=== PATIENT | female | born 1965 | race Caucasian/White ===

== ENCOUNTER 2024-03-22 14:35 | Outpatient (OUT) | payer BC, SELFPAY ==
--- NOTE | 2024-03-22 14:44 | MM_ITS ---
Patient Name: LOLY SAUCEDA MR#: [id number] : 1965 Exam Date: 03/22/2024 Ordering Doctor: DR ANDREW FONSECA M.D. RADIOLOGY REPORT PROCEDURE: MM TOMOSYNTHESIS SCREENING BI COMPARISON: MG MAMM SCREEN 3D RUBA CAD, 01/28/2022. MG MAMM SCREEN 3D RUBA CAD, 03/20/2023. INDICATIONS: Screening Calculator Name NCI Breast Cancer Risk Assessment Tool 5 Year Breast Cancer Risk n/a% Lifetime Breast Cancer Risk n/a% Personal Breast Cancer Yes, Rt Breast Ca Age 37 Personal Ovarian Cancer No Treatments Lumpectomy, Chemo and Radiation Family Cancers None LOCATION: [facility] BREAST COMPOSITION: There are scattered areas of fibroglandular density. FINDINGS: DIAGNOSTIC CATEGORY 2--BENIGN FINDING. NO CHANGE FROM COMPARISON. Scattered benign-appearing calcifications are present. Scattered benign-appearing lymph nodes are present. RIGHT BREAST: No significant suspicious finding. Asymmetrically small, stable. Heterotopic calcification upper outer quadrant, unchanged LEFT BREAST: No significant suspicious finding. Micro clip marker upper inner quadrant, mid breast. RECOMMENDATIONS: ROUTINE MAMMOGRAM AND CLINICAL EVALUATION IN 12 MONTHS. PLEASE NOTE: A NORMAL MAMMOGRAM DOES NOT EXCLUDE THE POSSIBILITY OF BREAST CANCER. A CLINICALLY SUSPICIOUS PALPABLE LUMP SHOULD BE BIOPSIED. Dictated by: Samuel Roberson MD on 03/23/2024 at 08:29 Approved by: Samuel Roberson MD on 03/23/2024 at 08:45
== END 2024-03-22 14:36 | disposition home or self-care (01) ==
LOC: MAMMO 14:38
PROVIDERS: PCP Family Medicine; Visit Provider Family Medicine
DX: Z12.31 Encounter for screening mammogram for malignant neoplasm of breast (principal); Z85.3 Personal history of malignant neoplasm of breast
CPT/HCPCS: 77063; 77067

== ENCOUNTER 2025-04-03 07:22 | Outpatient (OUT) | payer BC, SELFPAY ==
--- NOTE | 2025-04-03 07:25 | MM_ITS ---
Patient Name: LOLY SAUCEDA MR#: [id number] : 1965 Exam Date: 04/03/2025 Ordering Doctor: DR ANDREW FONSECA M.D. RADIOLOGY REPORT PROCEDURE: MM TOMOSYNTHESIS SCREENING BI COMPARISON: MM TOMOSYNTHESIS SCREENING BI, 03/22/2024. MG MAMM SCREEN 3D RUBA CAD, 03/20/2023. MG MAMM SCREEN 3D RUBA CAD, 01/28/2022. MG MAMM RUBA DIAG W CAD DIG, 01/10/2014. INDICATIONS: Screening Calculator Name NCI Breast Cancer Risk Assessment Tool 5 Year Breast Cancer Risk n/a% Lifetime Breast Cancer Risk n/a% Personal Breast Cancer Yes, Rt Breast Ca Age 37 Personal Ovarian Cancer No Treatments Lumpectomy, Chemo and Radiation Family Cancers None LOCATION: [facility] BREAST COMPOSITION: There are scattered areas of fibroglandular density. FINDINGS: RIGHT BREAST: No significant suspicious finding. LEFT BREAST: No significant suspicious finding. DIAGNOSTIC CATEGORY 1--NEGATIVE. RECOMMENDATIONS: ROUTINE MAMMOGRAM AND CLINICAL EVALUATION IN 12 MONTHS. PLEASE NOTE: A NORMAL MAMMOGRAM DOES NOT EXCLUDE THE POSSIBILITY OF BREAST CANCER. A CLINICALLY SUSPICIOUS PALPABLE LUMP SHOULD BE BIOPSIED. Dictated by: Obi Conde DO on 04/03/2025 at 10:38 Approved by: Obi Conde DO on 04/03/2025 at 11:17
--- OUTSIDE RECORDS SUMMARY | 2025-04-03 07:25 | XMS_ITS | CCD ---
Author Organization [facility] Care Team Providers Care Security Systems Administrator Name Role Phone PHYSICIAN, DEFAULT Unavailable Unavailable PHYSICIAN, DEFAULT Unavailable Unavailable RAYMUNDO, DR MORALES Attending Unavailable RAYMUNDO, DR MORALES Consulting Unavailable RAYMUNDO, DR MORALES Primary Care Unavailable RAYMUNDO, DR MORALES Admitting Unavailable MCKENNA, DR LORNA Wallace Consulting Unavailable Jerry PROCESS TANK TENDER, Marcelle Peña Unavailable Sharonda Grijalva MD Primary Care Provider Jerry PROCESS TANK TENDER, Marcelle Peña Unavailable SHARONDA GRIJALVA Attending Unavailable MARCELLE ST Attending Unavailable MARCELLE ST Attending Unavailable RAYMUNDO, SHARONDA Barlow Attending Unavailable RAYMUNDO, SHARONDA Barlow Referring Unavailable RAYMUNDO, SHARONDA Barlow Referring Unavailable RAYMUNDO, SHARONDA Barlow Referring Unavailable DAVID NORMAN Attending Unavailable RAYMUNDO, SHARONDA Barlow Referring Unavailable APLINGVENTURA Attending Unavailable RAYMUNDO, SHARONDA Barlow Attending Unavailable [place] Attending Unavailable Medications Current Medications Medication Drug Class(es) Dates Sig (Normalized) Sig (Original) [id number] actuat albuterol 0.09 mg/actuat metered dose inhaler (20 sources) beta2-Adrenergic Agonist Start: 01-01-2024 take 2 puff(s) by inhalation every six hours for wheezing albuterol HFA 90 mcg/act inhaler Indications: Acute bronchitis, unspecified organism Inhale 2 puffs every 6 (six) hours if needed for wheezing 17 g 1 01/01/2024 Active Start: 04-20-2023 End: 04-19-2024 take 2 puff(s) by inhalation every four hours for wheezing albuterol HFA 90 mcg/act inhaler Indications: Acute bronchitis, unspecified organism Inhale 2 puffs every 4 (four) hours if needed for wheezing. 18 g 0 04/20/2023 04/19/2024 Active aspirin 81 mg delayed release oral tablet (20 sources) Platelet Aggregation Inhibitor, Nonsteroidal Anti-inflammatory Drug Start: 09-12-2024 End: 09-12-2025 take 1 tablet by mouth once daily aspirin 81 MG EC tablet Indications: Type 2 diabetes mellitus without complication, without long-term current use of insulin Take 1 tablet (81 mg) by mouth Daily 90 tablet 3 09/12/2024 09/12/2025 Active take 1 tablet by mouth once aspi rin 81 MG EC tablet Take 81 mg by mouth 1 (one) time. Active atorvastatin 10 mg oral tablet (20 sources) HMG-CoA Reductase Inhibitor Start: 04-25-2024 End: 11-07-2024 atorvastatin (Lipitor) 10 MG tablet Indications: Pure hypercholesterolemia (CMS/HCC) TAKE 1/2 TABLET EVERY MORNING 45 tablet 11 11/07/2024 Active Start: 11-30-2023 atorvastatin ( Lipitor) 10 MG tablet Indications: Pure hypercholesterolemia (CMS/HCC) TAKE 1/2 TABLET EVERY MORNING 45 tablet 1 11/30/2023 Active Start: 06-03-2023 End: 11-30-2023 take 0.5 tablet by mouth in the morning atorvastatin (Lipitor) 10 MG tablet Indications: Pure hypercholesterolemia (CMS/HCC) Take 0.5 tablets (5 mg) by mouth in the morning. 45 tablet 1 06/03/2023 11/30/2023 Discontinued Blood Glucose Monitoring Suppl (Blood Glucose Monitor System) w/Device kit (1 source) Start: 03-17-2025 End: 03-17-2026 Blood Glucose Monitoring Suppl (Blood Glucose Monitor System) w/Device kit Indications: Type 2 diabetes mellitus without complication, without long-term current use of insulin Use daily or as directed for monitoring of diabetes. 1 kit 03/17/2025 03/17/2026 Active dapagliflozin 10 mg oral tablet (1 source) Sodium-Glucose Cotransporter 2 Inhibitor Start: 09-30-2023 take 1 tablet by mouth in the morning dapagliflozin (Farxiga) 10 MG Indications: Type 2 diabetes mellitus without complication, without long-term current use of insulin (CMS/HCC) Take 1 tablet (10 mg) by mouth in the morning. 90 tablet 1 09/30/2023 Active 60 actuat fluticasone propionate 0.25 mg/actuat / salmeterol 0.05 mg/actuat dry powder inhaler (20 sources) Corticosteroid, beta2-Adrenergic Agonist Start: 10-02-2023 End: 09-27-2024 Fluticasone-Salmet gio (Advair Diskus) 250-50 MCG/ACT aerosol powder Indications: Moderate persistent asthma without complication (CMS/HCC) Inhale 1 Inhalation in the morning and 1 Inhalation before bedtime. 3 each 1 09/27/2024 Active ibuprofen 800 mg oral tablet (20 sources) Nonsteroidal Anti-inflammatory Drug Start: 11-19-2024 IBU 800 MG tablet Indications: Myalgia TAKE 1 TABLET 3 TIMES A DAY NEEDED WITH FOOD OR MILK 270 tablet 11 11/19/2024 Active Start: 04-01-2024 IBU 800 MG tab let Indications: Myalgia TAKE 1 TABLET 3 TIMES A DAY NEEDED WITH FOOD OR MILK 270 tablet 2 04/01/2024 Active Start: 06-30-2023 IBU 800 MG tab let Indications: Myalgia TAKE 1 TABLET WITH FOOD OR MILK NEEDED 3 TIMES A DAY 270 tablet 2 06/30/2023 Active lisinopril 2.5 mg oral tablet (20 sources) Angiotensin Converting Enzyme Inhibitor Start: 03-31-2024 End: 11-07-2024 lisinopril 2.5 MG tablet Indications: Essential hypertension (CMS/HCC) TAKE 1 TABLET ONCE DAILY 90 tablet 11 11/07/2024 Active Start: 07-07-2023 lisinopril 2.5 MG tablet Indications: Essential hypertension (CMS/HCC) TAKE 1 TABLET ONCE DAILY 90 tablet 2 07/07/2023 Active metFORMIN hydrochloride 500 mg oral tablet (20 sources) Biguanide Start: 04-25-2024 metFORMIN (Glu cophage) 500 MG tablet Indications: Type 2 diabetes mellitus without complication, without long-term current use of insulin TAKE 2 TABLETS 2 TIMES DAILY WITH MEALS 360 tablet 3 04/25/2024 Active Start: 06-03-2023 metFORMIN (Glu cophage) 500 MG tablet Indications: Type 2 diabetes mellitus without complication, without long-term current use of insulin (CMS/HCC) TAKE 2 TABLETS 2 TIMES DAILY WITH MEALS 360 tablet 3 06/03/2023 Active metoprolol tartrate 50 mg oral tablet (20 sources) beta-Adrenergic Asif Start: 06-07-2024 End: 03-30-2026 take 1 tablet by mouth in the morning metoprolol tartrate (Lopressor) 50 MG tablet Indications: Essential hypertension (CMS/HCC) Take 1 tablet (50 mg) by mouth in the morning and 1 tablet (50 mg) before bedtime. 180 tablet 11 03/30/2025 03/30/2026 Active Start: 09-28-2023 metoprolol tar trate (Lopressor) 50 MG tablet Indications: Essential hypertension (CMS/HCC) TAKE 1 TABLET 2 TIMES DAILYWITH FOOD 180 tablet 2 09/28/2023 Active montelukast 10 mg oral tablet (20 sources) Leukotriene Receptor Antagonist Start: 11-19-2024 montelukast (Singulair) 10 MG tablet Indications: Seasonal allergic rhinitis due to pollen TAKE 1 TABLET ONCE DAILY 90 tablet 11 11/19/2024 Active Start: 04-01-2024 montelukast (S ingulair) 10 MG tablet Indications: Seasonal allergic rhinitis due to pollen TAKE 1 TABLET ONCE DAILY 90 tablet 1 04/01/2024 Active Start: 09-22-2023 montelukast (S ingulair) 10 MG tablet Indications: Seasonal allergic rhinitis due to pollen TAKE 1 TABLET ONCE DAILY 90 tablet 1 09/22/2023 Active naproxen sodium 220 mg oral tablet (20 sources) Nonsteroidal Anti-inflammatory Drug take 1 tablet by mouth twice daily as needed for pain naproxen sodium (Aleve) 220 MG tablet Take 220 mg by mouth 2 (two) times a day as needed for mild pain. Active Nirmatrelvir&Roverto navir 300/100 (Paxlovid, 300/100,) 20 x 150 MG & 10 x 100MG tablet therapy pack (10 sources) Start: 4 take 3 tablets by mouth in the morning Nirmatrelvir&Roverto navir 300/100 (Paxlovid, 300/100,) 20 x 150 MG & 10 x 100MG tablet therapy pack Indications: COVID-19 Take 3 tablets by mouth in the morning and 3 tablets before bedtime. 30 each 09/27/2024 Active nystatin 100 unt/mg topical powder (20 sources) Polyene Antifungal Start: 5 nystatin (Mycostatin) [id number] UNIT/GM powder Indications: Fungal infection Apply topically 2 (two) times a day 180 g 11 01/10/2025 Active Start: 06-08-2024 End: 12-02-2024 nystatin (Mycostatin) [id number] UNIT/GM powder Indications: Fungal infection Apply topically 2 (two) times a day 180 g 11 12/02/2024 Active Start: 07-07-2023 nystatin (Myco statin) 911805 UNIT/GM powder Indications: Fungal infection APPLY POWDER TOPICALLY TO AFFECTED AREA TWICE DAILY FOR 5 DAYS DIRECTED 180 g 1 07/07/2023 Active omeprazole 40 mg delayed release oral capsule (20 sources) Proton Pump Inhibitor Start: 05-09-2024 omeprazole (PriLOSEC ) [address] capsule Indications: Gastroesophageal reflux disease without esophagitis TAKE 1 CAPSULE DAILY 90 capsule 3 05/09/2024 Active Start: 05-22-2023 omeprazole (Pr iLOSEC) [address] capsule Indications: Gastroesophageal reflux disease without esophagitis TAKE 1 CAPSULE DAILY 90 capsule 3 05/22/2023 Active Tirzepatide (Mounjaro) 5 MG/0.5ML solution pen-injector (20 sources) Start: 04-13-2024 inject 5 mg by subcutaneous injection every week Tirzepatide (Mounjaro) 5 MG/0.5ML solution pen-injector Indications: Type 2 diabetes mellitus without complication, without long-term current use of insulin Inject 5 mg under the skin 1 (one) time per week 12 mL 1 04/13/2024 Active Start: 04-13-2024 inject 5 mg by subcu taneous injection every week Tirzepatide (Mounjaro) 5 MG/0.5ML solution pen-injector Indications: Type 2 diabetes mellitus without complication, without long-term current use of insulin (CMS/HCC) Inject 5 mg under the skin 1 (one) time per week 12 mL 1 04/13/2024 Active Completed/Discontinued Medications Medication Drug Class(es) Dates Sig (Normalized) Sig (Original) cyclobenzaprine hydrochloride 10 mg oral tablet (7 sources) Muscle Relaxant Start: 4 End: 4 take 1 tablet by mouth three times daily as needed for muscle spasms cyclobenzaprine (Flexeril) 10 MG tablet Indications: Lumbar pain Take 1 tablet (10 mg) by mouth 3 (three) times a day as needed for muscle spasms for up to 10 days 30 tablet 07/21/2024 09/05/2024 Discontinued (Med list cleanup) 1 ml methylPREDNISolone acetate 40 mg/ml injection (8 sources) Corticosteroid Start: End: methylPREDNISolone acetate (DEPO-Medrol) injection 40 mg Start: 10-10-2024 End: 10-10-2024 40 mg, Intra-articular, Once PRN Procedure, Starting on Thu10/10/24 at 2117, For 1 dose Start: 09-05-2024 End: 09-05-2024 methylPREDNISolone acetate ( DEPO-Medrol) injection 40 mg Start: 09-05-2024 End: 09-05-2024 40 mg, Intra-articular, Once PRN Procedure, Starting on Thu09/05/24 at 1416, For 1 dose Problems Active Problems Problem Classification Problem Date Documented Date Episodic/Chronic Asthma (20 sources) Mild intermittent asthma; Translations: [Mild intermittent asthma with (acute) exacerbation] Onset: 06-15-2023 06-15-2023 Chronic Cancer of breast (20 sources) Malignant tumor of breast ; Translations: [Malignant neoplasm of unspecified site of unspecified female breast] Onset: 01-02-2014 06-15-2023 Chronic Diabetes mellitus without complication (20 sources) Type 2 diabetes mellitus without complication; Translations: [Type 2 diabetes mellitus without complications] Onset: 08-15-2020 06-15-2023 Chronic Disorders of lipid metabolism (20 sources) Pure hypercholesterolemia; Translations: [Pure hypercholesterolemia, unspecified] Onset: 12-30-2023 11-28-2023 Chronic Esophageal disorders (20 sources) Gastro-esophageal reflux disease with esophagitis; Translations: [Gastro-esophageal reflux disease with esophagitis, without bleeding] Onset: 06-15-2023 06-15-2023 Chronic Essential hypertension (20 sources) Essential hypertension; Translations: [Essential (primary) hypertension] Onset: 08-07-2020 06-15-2023 Chronic Joint disorders and dislocations; trauma-related (20 sources) Derangement of right knee; Translations: [Unspecified internal derangement of right knee] Onset: 06-15-2023 06-15-2023 Chronic Menopausal disorders (20 sources) Postmenopausal bleeding; Translations: [Postmenopausal bleeding] Onset: 06-15-2023 06-15-2023 Chronic Mycoses (1 source) Mycosis; Translations: [Unspecified mycosis] 12-02-2024 Episodic Osteoarthritis (20 sources) Arthritis of first carpometacarpal joint of left hand; Translations: [Unilateral primary osteoarthritis of first carpometacarpal joint, left hand] Onset: 06-15-2023 06-15-2023 Chronic Other connective tissue disease (4 sources) Trochanteric bursitis of right hip; Translations: [Trochanteric bursitis, right hip] 09-05-2024 Episodic Other connective tissue disease (4 sources) Trochanteric bursitis of left hip; Translations: [Trochanteric bursitis, left hip] 10-10-2024 Episodic Other lower respiratory disease (2 sources) Cough; Translations: [Acute cough] 09-27-2024 Episodic Other non-traumatic joint disorders (4 sources) Hip pain; Translations: [Pain in right hip] 08-29-2024 Episodic Other screening for suspected conditions (not mental disorders or infectious disease) (4 sources) Encounter for screening mammogram for malignant neoplasm of breast; Translations: [ENC SCR MAMMO MALIG NEOPLASM BREAST] Onset: 03-20-2023 Episodic Other upper respiratory disease (20 sources) Allergic rhinitis; Translations: [Allergic rhinitis, unspecified] Onset: 03-26-2016 03-27-2023 Chronic Spondylosis; intervertebral disc disorders; other back problems (20 sources) Lumbosacral spondylosis without myelopathy; Translations: [Spondylosis without myelopathy or radiculopathy, lumbosacral region] Onset: 12-22-2019 06-15-2023 Chronic Spondylosis; intervertebral disc disorders; other back problems (3 sources) Low back pain; Translations: [Lumbar pain] 08-25-2024 Episodic Viral infection (2 sources) Disease caused by 2019-nCoV; Translations: [COVID-19] 09-27-2024 Episodic Past or Other Problems Problem Classification Problem Date Documented Da te Episodic/Chronic Abdominal pain (2 sources) Right upper quadrant pain; Translations: [Right upper quadrant pain] 07-04-2024 Episodic Cancer of breast (4 sources) Personal history of malignant neoplasm of breast; Translations: [History of malignant neoplasm of breast] Onset: 03-22-2023 11-19-2024 Episodic Other acquired deformities (20 sources) Acquired spondylolisthesis; Translations: [Spondylolisthesis , site unspecified] Onset: 11-24-2019 06-15-2023 Episodic Other connective tissue disease (20 sources) Deformity of lower limb; Translations: [Contracture of muscle, right lower leg] Onset: 06-15-2023 06-15-2023 Episodic Other connective tissue disease (20 sources) Neurogenic claudication; Translations: [Other symptoms and signs involving the nervous system] Onset: 10-31-2019 06-15-2023 Episodic Results Test Name Value Interpretation Reference Range Facility No Panel Informationon 10-10 Ventura Sood NP 10/10/2024 9:18 PM L Inj/Asp: L greater trochanteric bursa on 10/10/2024 9:17 PM Indications: pain Details: 20 G needle, lateral approach Medications: 40 mg methylPREDNISolone acetate 40 MG/ML UTILIZING ASEPTIC TECHNIQUE PT GIVEN INJECTION IN LEFT HIP BURSA NEUROVASC INTACT S/P INJ, TOLERATED WELL Procedure, treatment alternatives, risks and benefits explained, specific risks discussed. Consent was given by the patient. [facility] - Microbiology an d Antimicrobial susceptibilityon 09-27-2024 SARS-CoV-2 (COVID-19) RNA TOMAS+probe Ql (Unsp spec) Positive [facility] No Panel Informationon 09-27 FLU A Negative [facility] FLU B Negative [facility] Interpretation and review of laboratory results Abnormal [facility] No Panel Informationon 09-05 Ventura Sood NP 09/05/2024 2:18 PM L Inj/Asp: R greater trochanteric bursa on 09/05/2024 2:16 PM Indications: pain Details: 20 G needle, lateral approach Medications: 40 mg methylPREDNISolone acetate 40 MG/ML Consent was given by the patient. Immediately prior to procedure a time out was called to verify the correct patient, procedure, equipment, support service tech and site/side marked as required. Patient was prepped and draped in the usual sterile fashion. [facility] MR LUMBAR SPINE WO CONTRASTo n 07-20-2024 MR LUMBAR SPINE WO CONTRAST TITLE OF EXAM: MR - MRI LUMBAR SPINE WO CONTRAST REASON FOR EXAM: Chronic low back pain, occassional numbness/tingling in right leg, no injury TECHNIQUE: Multisequence, multiplanar MRI of the lumbar spine and COMPARISON: Lumbar spine MRI 11/11/2019 FINDINGS: General findings: There are 5 nonrib-bearing lumbar vertebrae. No fracture; normal vertebral body heights. Minimal retrolisthesis of L3 on L4 and anterolisthesis of L4 on L5, 2 to 3 mm at these levels. Marrow: Ovoid T1 signal hypointense, T2 signal hyperintense lesion within the L4 vertebral body left of midline is unchanged, favoring an intraosseous hemangioma. Mild Modic type II changes of the anterior endplates at T12-L1. Spinal canal: No mass. Normal cord signal and caliber. No thickening/clumping of cauda equina nerve roots. The conus medullaris is at the level of L1-2. Paraspinal muscles and visualized soft tissues: Mild erector spinae atrophy/fatty replacement. Degenerative findings: T12-L1: Mild degenerative disc disease. Small broad-based disc bulge. Minimal spinal canal stenosis. No significant neural foraminal narrowing. L1-2: No significant degenerative changes. No spinal canal or neural foraminal stenosis. L2-3: No significant degenerative changes. No spinal canal or neural foraminal stenosis. L3-4: Mild bilateral facet osteoarthrosis. Mild degenerative disc disease with small broad-based disc bulge. Mild bilateral neural foraminal and minimal spinal canal stenosis. L4-5: Mild degenerative disc disease. Small broad-based disc bulge. Moderate to severe left and moderate right facet osteoarthrosis. Ligamentum flavum hypertrophy. Mild to moderate bilateral neural foraminal stenosis. Mild to moderate spinal canal narrowing. L5-S1: Mild to moderate degenerative disc disease. Broad-based disc bulge. Mild to moderate left and mild right facet osteoarthrosis. Mild to moderate right and mild left neural foraminal stenosis. Minimal spinal canal narrowing. IMPRESSION: 1. No lumbar spine fracture. 2. Minimal L3-4 and L4-5 listhesis, 2 to 3 mm. 3. Degenerative changes as detailed, which contribute to no greater than mild to moderate neural foraminal and spinal canal stenosis at any level. DICTATED ON: 07/20/2024 9:55 AM This report has been electronically signed and approved by the interpreting radiologist. Electronically Signed Raúl Kemp M.D. 2024-07-20 09:59:14 Normal Not Available HbA1c (Bld) [Mass fraction]o n 07-04-2024 Interpretation and review of laboratory results Normal [facility] - Hematology and Cell countson 07-04-2024 HbA1c (Bld) [Mass fraction] 5.7 % [facility] US LIVERon 07-04-2024 US LIVER EAM: Abdominal Ultrasound, Limited. REASON FOR EXAM: Right upper quadrant pain. TECHNIQUE: Transabdominal scanning was performed, including color Doppler and spectral analysis. FINDINGS: Liver: Normal in size and echotexture. Gallbladder: Absent. Bile ducts: Normal in diameter. No dilatation appreciated. Pancreas: Unremarkable. IVC/aorta: Not evaluated. Portal vein: There is appropriate directional flow. Right kidney: No stone, mass or hydronephrosis. No evidence of cysts. Peritoneum: No evidence of ascites. Other: None. Measurements: CBD: 0.32 cm Right kidney: 10.90 cm Liver: 14.09 cm IMPRESSION: Normal limited right upper quadrant abdominal ultrasound. Absent gallbladder. *This report is generated using voice recognition reporting (Wintegra). On occasion [employer]inte[employer] erroneously drops words from the report or replaces the spoken word with similar sounding words. Please call with any questions/concerns regarding this report.* Dictated and transcribed 07/08/2024/ This report has been electronically signed and approved by the interpreting radiologist. Electronically Signed Mehrdad To M.D. 2024-07-08 18:52:09 Normal Not Available XR ABDOMEN 2 VIEWon 07-04-20 24 XR ABDOMEN 2 VIEW XR - ABDOMEN 2 VIEWS Reason for exam: Acute right upper abdominal pain Views: 2 views in 3 images Findings: Status post cholecystectomy. There is no free air beneath the diaphragm. There is a normal bowel gas pattern without obstruction or ileus, and no organomegaly or abnormal calcifications. There is moderate stool throughout the colon. Impression: Colonic obstipation. No acute findings. Dictated on: 07/04/2024 4:58 PM This report has been electronically signed and approved by the interpreting Radiologist. Electronically Signed Mehrdad To M.D. 2024-07-04 16:59:29 Normal Not Available XR Abdomen Single viewon XR - ABDOMEN 2 VIEWS Reason for exam: Acute right upper abdominal pain Views: 2 views in 3 images Findings: Status post cholecystectomy. There is no free air beneath the diaphragm. There is a normal bowel gas pattern without obstruction or ileus, and no organomegaly or abnormal calcifications. There is moderate stool throughout the colon. Impression: Colonic obstipation. No acute findings. Dictated on: 07/04/2024 4:58 PM This report has been electronically signed and approved by the interpreting Radiologist. Electronically Signed Mehrdad To M.D. 2024-07-04 16:59:29 IMAGING Mehrdad To MD - 07/04/2024 XR - ABDOMEN 2 VIEWS Reason for exam: Acute right upper abdominal pain Views: 2 views in 3 images Findings: Status post cholecystectomy. There is no free air beneath the diaphragm. There is a normal bowel gas pattern without obstruction or ileus, and no organomegaly or abnormal calcifications. There is moderate stool throughout the colon. Impression: Colonic obstipation. No acute findings. Dictated on: 07/04/2024 4:58 PM This report has been electronically signed and approved by the interpreting Radiologist. Electronically Signed Mehrdad To M.D. 2024-07-04 16:59:29 [facility] Radiology Study observation (narrative) [facility] XR CHEST 2 VIEWSon 4 XR CHEST 2 VIEWS XR - CHEST 2 VIEWS Reason for exam: Chronic cough Technique: PA and lateral view Findings: The heart size is normal. The pulmonary vascularity is unremarkable. The lungs are fully expanded and clear. No pleural abnormalities are seen. No evidence of mediastinal or hilar enlargement. The osseous structures are intact. No soft tissue abnormalities are seen. IMPRESSION: No acute findings. Dictated on: 07/04/2024 5:18 PM This report has been electronically signed and approved by the interpreting Radiologist. Electronically Signed Mehrdad To M.D. 2024-07-04 17:18:30 Normal Not Available XR Chest 2 Viewson 4 XR - CHEST 2 VIEWS Reason for exam: Chronic cough Technique: PA and lateral view Findings: The heart size is normal. The pulmonary vascularity is unremarkable. The lungs are fully expanded and clear. No pleural abnormalities are seen. No evidence of mediastinal or hilar enlargement. The osseous structures are intact. No soft tissue abnormalities are seen. IMPRESSION: No acute findings. Dictated on: 07/04/2024 5:18 PM This report has been electronically signed and approved by the interpreting Radiologist. Electronically Signed Mehrdad To M.D. 2024-07-04 17:18:30 IMAGING Mehrdad To MD - 07/04/2024 XR - CHEST 2 VIEWS Reason for exam: Chronic cough Technique: PA and lateral view Findings: The heart size is normal. The pulmonary vascularity is unremarkable. The lungs are fully expanded and clear. No pleural abnormalities are seen. No evidence of mediastinal or hilar enlargement. The osseous structures are intact. No soft tissue abnormalities are seen. IMPRESSION: No acute findings. Dictated on: 07/04/2024 5:18 PM This report has been electronically signed and approved by the interpreting Radiologist. Electronically Signed Mehrdad To M.D. 2024-07-04 17:18:30 [facility] Radiology Study observation (narrative) [facility] XR Chest 2 ViewsOrdered By: Mehrdad To on 07-04-2024 [facility] Work Phone: MG MAMM SCREEN 3D RUBA CADon 03-20-2023 MG MAMM SCREEN 3D RUBA CAD Patient: LOLY SAUCEDA Exam Date: 03/20/2023 : 1965 Gender:F Ordering : DR SHARONDA GRIJALVA M.D. Admission #: [id number] Family : Order #: [id number] CLICK HERE TO VIEW EXAM RADIOLOGY REPORT PROCEDURE: MAMMOGRAM SCREENING 3D BILATERAL CAD COMPARISON: MG MAMM SCREEN 3D RUBA CAD, 01/28/2022. INDICATIONS: Screening mammography Calculator Name NCI Breast Cancer Risk Assessment Tool 5 Year Breast Cancer Risk n/a% Lifetime Breast Cancer Risk n/a% Personal Breast Cancer Yes, Rt Breast Ca Age 37 Personal Ovarian Cancer No Treatments Lumpectomy, Chemo and Radiation Family Cancers None LOCATION: [facility] BREAST COMPOSITION: Scattered areas fibroglandular density. FINDINGS: DIAGNOSTIC CATEGORY 2--BENIGN FINDING. NO CHANGE FROM COMPARISON. Scattered benign-appearing lymph nodes are present. RIGHT BREAST: Asymmetrically small, stable. Heterotopic calcifications in the axillary tail are stable likely postsurgical changes. LEFT BREAST: No significant suspicious finding. Unchanged micro clip marker lower inner quadrant, posterior breast RECOMMENDATIONS: ROUTINE MAMMOGRAM AND CLINICAL EVALUATION IN 12 MONTHS. PLEASE NOTE: A NORMAL MAMMOGRAM DOES NOT EXCLUDE THE POSSIBILITY OF BREAST CANCER. A CLINICALLY SUSPICIOUS PALPABLE LUMP SHOULD BE BIOPSIED. Dictated by: Lorna Roberson MD on 03/20/2023 at 10:05 Approved by: Lorna Roberson MD on 03/20/2023 at 10:08 Normal [facility] MRI Knee w/o Righton 023 MRI Knee w/o Right HISTORY: Medial knee pain for 6 months. History of prior surgery. COMPARISON: Radiograph study 10/08/2022 and MRI of the knee 01/03/2022 TECHNIQUE: Multiplanar multisequence MRI of the right knee was performed without contrast. FINDINGS: Quadriceps and patellar tendons are intact. Small joint effusion. The anterior cruciate ligament and posterior cruciate ligament are intact. The medial collateral ligament, lateral collateral ligament, and popliteus are intact. Small size and abnormal signal of the posterior horn/root of the medial meniscus is likely in part postsurgical. There appears to be a flap tear of the posterior horn with thin displaced meniscus flap located inferiorly along the periphery of the posterior medial tibial plateau. There is undersurface irregularity of the posterior horn of the medial meniscus likely representing meniscus fraying. Linear signal within the body of the medial meniscus is unchanged. The lateral meniscus is intact. Interval development of a few tiny partial-thickness cartilage defects of the outer weightbearing medial femoral condyle superimposed on partial-thickness cartilage loss. Tiny subcortical cyst formation of the medial tibial plateau and the location of the previously described subchondral insufficiency fracture. There is a tiny area of cortical offset of the subchondral cortex of the medial tibial plateau with regional bone marrow edema and overlying cartilage abnormality in the form of tiny partial and full-thickness defects. No significant interval change of patellofemoral compartment cartilage abnormalities. Popliteal fossa structures are intact. Thin septated Dong's cyst measures approximately 3.5 cm in craniocaudal length. IMPRESSION: There appears to be a flap tear of the posterior horn of the medial meniscus with thin displaced meniscus flap located inferiorly along the periphery of the medial tibial plateau. Undersurface fraying of the posterior horn of the medial meniscus. Medial and patellofemoral compartment osteoarthritis and additional findings as detailed. Report reported and signed by Shemar Silva on 11/11/2022 1422 Normal [facility] Bookkeeping Teacher Microalbumin (w/o Creat)on 0 01-07-2022 mALB <1.2 Low [facility] Teacher Comment on above: Result Comment: mALB reference range not established. Performed By: #### m ALB #### [facility] [address] [id number] Q - THINPREP(R) TIS AND HPV MRNA E6/E7 RFL HPV 16/18/45on 01-07-2022 CLINICAL INFORMATION: None given Normal Nor [facility] Comment on above: Order Comment: [facility] performed at: [facility], [address] [place] [address], [address] [place] [address], [address] [place] [address], Limnologist: Everett Rankin MD [facility] Collection Date/Time: [facility] Results Received Date/Time: [facility] Reported Date/Time: Performed By: #### 9 1414 #### [facility] Default [address] [place] [address] COMMENT SEE NOTE Normal [facility] Comment on above: Order Comment: [facility] performed at: [facility], [address] [place] [address], [address] [place] [address], [address] [place] [address], Limnologist: Everett Rankin MD [facility] Collection Date/Time: [facility] Results Received Date/Time: [facility] Reported Date/Time: Result Comment: EXPL ANATORY NOTE: The Pap is a screening test for cervical cancer. It is not a diagnostic test and is subject to false negative and false positive results. It is most reliable when a satisfactory sample, regularly obtained, is submitted with relevant clinical findings and history, and when the Pap result is evaluated along with historic and current clinical information. Performed By: #### 9 1414 #### [facility] [address] [place] [address] COMMENT: This Pap test has be en evaluated with computer assisted technology. Normal [facility] Comment on above: Order Comment: [facility] performed at: [facility], [address] [place] [address], [address] [place] [address], [address] [place] [address], Limnologist: Everett Rankin MD [facility] Collection Date/Time: [facility] Results Received Date/Time: [facility] Reported Date/Time: Performed By: #### 9 1414 #### [facility] Default [address] [place] [address] COLON AND RECTAL SURGEON: SEE NOTE Normal [facility] Comment on above: Order Comment: [facility] performed at: [facility], [address] [place] [address], [address] [place] [address], [address] [place] [address], Limnologist: Everett Rankin MD [facility] Collection Date/Time: [facility] Results Received Date/Time: [facility] Reported Date/Time: Result Comment: MRS, CT(ASCP) CT screening location: [place] [address]. Performed By: #### 9 1414 #### [facility] [address] [place] [address] HPV mRNA E6/E7 Not detected Normal Not Detected [facility] Comment on above: Order Comment: [facility] performed at: [facility], [facility], [address] [place] [address], [address] [place] [address], [address] [place] [address], Limnologist: Everett Rankin MD [facility] Collection Date/Time: [facility] Results Received Date/Time: [facility] Reported Date/Time: Result Comment: Meth odology: Program Services Assistant-Mediated Amplification This assay detects E6/E7 viral messenger RNA (mRNA) from 14 high-risk HPV types (16,18,31,33,35,39,45,51,52,56,58,59,66,68). The analytical performance characteristics of this assay have been determined by [facility]. The modifications have not been cleared or approved by the FDA. This assay has been validated pursuant to the CLIA regulations and is used for clinical purposes. For additional information, please refer to http://education.Blue Box/faq/TRM810s9 (This link if provided for information/ educational purposes only.) Performed By: #### 9 1414 #### [facility] [address] [place] [address] INTERPRETATION/RESULT : Negative Normal [facility] [employer] [facility] Comment on above: Order Comment: [facility] performed at: [facility], [facility], [address] [place] [address], [address] [place] [address], [address] [place] [address], Limnologist: Everett Rankin MD [facility] Collection Date/Time: [facility] Results Received Date/Time: [facility] Reported Date/Time: Performed By: #### 9 1414 #### [facility] [address] [place] [address] LMP: None given Normal [facility] Specialist Comment on above: Order Comment: [facility] performed at: [employer], [facility], [address] [place] [address], [address] [place] [address], [address] [place] [address], Limnologist: Everett Rankin MD [facility] Collection Date/Time: [facility] Results Received Date/Time: [facility] Reported Date/Time: Performed By: #### 9 1414 #### [facility] [address] [place] [id number] PREV. BX: None given Normal [facility] Special[facility] Comment on above: Order Comment: [facility] performed at: [facility], [facility], [address] [place] [address], [address] [place] [address], [address] [place] [address], Limnologist: Everett Rankin MD [facility] Collection Date/Time: [facility] Results Received Date/Time: [facility] Reported Date/Time: Performed By: #### 9 1414 #### [facility] Default [address] [place] [address] PREV. PAP: None given Normal [facility] Comment on above: Order Comment: [facility] performed at: [facility], [facility], [address] [place] [address], [address] [place] [address], [address] [place] [address], Limnologist: Everett Rankin MD [facility] Date/Time: [facility] Results Received Date/Time: [facility] Reported Date/Time: Performed By: #### 9 1414 #### [facility] [address] [place] [address] SOURCE: None given Normal [facility] Teacher Comment on above: Order Comment: [facility] performed at: [facility], [facility], [address] [place] [address], [address] [place] [address], Limnologist: Everett Rankin MD [facility] Collection Date/Time: [facility] Results Received Date/Time: [facility] Reported Date/Time: Performed By: #### 9 1414 #### [facility] Default [address] [place] [address] STATEMENT OF ADEQUACY: SEE NOTE Normal [facility] Teacher Comment on above: Order Comment: [facility] performed at: [facility], [facility], [address] [place] [address], [address] [place] [address], Limnologist: Everett Rankin MD [facility] Date/Time: [facility] Results Received Date/Time: [facility] Reported Date/Time: Result Comment: Sati sfactory for evaluation. Endocervical/transformation zone component present. Performed By: #### 9 1414 #### [facility] [address] [place] [address] MRI Knee w/o Righton 022 MRI Knee w/o Right HISTORY: Anterior right-sided knee pain for a couple months with difficulty with flexion. TECHNIQUE: Routine non-contrast MRI of the right knee COMPARISON: Radiographs from 11/20/2021 RESULT: MENISCI: Medial Meniscus: Complete radial tear of the posterior root with a portion of the meniscus protruding toward the medial gutter Lateral Meniscus: Intact LIGAMENTS: ACL, PCL, MCL, LCL Complex: Intact CARTILAGE: Moderate areas of full-thickness chondral loss involving the patella. Small tricompartmental osteophytes. TENDONS: Distal quadriceps intact. Patellar tendon intact. Popliteus tendon intact. BONES AND MARROW: Moderate bone marrow edema within the medial tibial plateau with probable small subchondral fracture line measuring approximately 5 mm transverse by 7 mm AP. No suspicious marrow replacing process. MUSCLES: Muscle bulk and signal intensity are normal. JOINT FLUID AND SYNOVIUM: Trace joint effusion. No synovitis. Small Dong's cyst. Associated ruptured/leaking component tracking inferiorly. Lobular cystic lesion along the posterior aspect of the distal femur medially, may represent continuation of the Dong's cyst versus ganglion cyst. OTHER: Subcutaneous edema especially anteriorly. IMPRESSION: Medial meniscal tear. Probable small subchondral insufficiency fracture of the medial tibial plateau. Moderate patella chondromalacia. Report reported and signed by Ascencion Suarez on 01/03/2022 1535 Normal [facility] Book[facility] Teacher US Venous, Unilat, Lower Ext Righton 12-09-2021 US Venous, Unilat, Lower Ext Right FINDINGS: The deep venous system of the right lower extremity exhibits full compressibility and normal flow augmentation. These specifically include the common femoral, superficial femoral, popliteal and visualization anterior tibialis, posterior tibialis and peroneal veins. No evidence of deep venous thrombosis is present. Greater saphenous vein is patent. No cystic or soft tissue mass in the popliteal fossa. IMPRESSION: No evidence of deep or superficial venous thrombosis. Report reported and signed by Sagar France on 12/09/2021 1254 Normal [facility] Vital Signs Date Time Vital Sign Value Performing Clinician Faci lity 09-27-2024 14:230500 Body height 160 cm Sharonda Grijalva MD Work Phone: [facility] 09-27-2024 14:23-0500 Body mass index (BMI) [Ratio] 28.34 kg/m2 Sharonda Grijalva MD Work Phone: [facility] 09-27-2024 14:23050 Body weight 72.58 kg Sharonda Grijalva MD Work Phone: [facility] 09-27-2024 14:23-0500 Diastolic blood pressure 76 mm[Hg] Sharonda Grijalva MD Work Phone: [facility] 09-27-2024 14:23-0500 Heart rate 79 /min Sharonda Grijalva MD Work Phone: [facility] 09-27-2024 14:23-0500 Respiratory rate 18 /min Sharonda Grijalva MD Work Phone: [facility] 09-27-2024 14:23-0500 SaO2% (BldA) [Mass fraction] 99 % Sharonda Grijalva MD Work Phone: [facility] 09-27-2024 14:23-0500 Systolic blood pressure 122 mm[Hg] Sharonda Grijalva MD Work Phone: [facility] 07-04-2024 13:47-0400 Body height 160 cm Sharonda Grijalva MD Work Phone: [facility] 07-04-2024 13:47-0400 Body mass index (BMI) [Ratio] 30.19 kg/m2 Sharonda Grijalva MD Work Phone: [facility] 07-04-2024 13:47-0400 Body weight 77.29 kg Sharonda Grijalva MD Work Phone: [facility] 07-04-2024 13:47-0400 Diastolic blood pressure 76 mm[Hg] Sharonda Grijalva MD Work Phone: [facility] 07-04-2024 13:47-0400 Heart rate 65 /min Sharonda Grijalva MD Work Phone: [facility] 07-04-2024 13:47-0400 Respiratory rate 18 /min Sharonda Grijalva MD Work Phone: [facility] 07-04-2024 13:47-0400 SaO2% (BldA) [Mass fraction] 98 % Sharonda Grijalva MD Work Phone: [facility] 07-04-2024 13:47-0400 Systolic blood pressure 122 mm[Hg] Sharonda Grijalva MD Work Phone: [facility] Encounters Encounter Date Encounter Type Care Provider Facility Start: 03-30-2025 End: 03-30-2025 Refill Sharonda Grijalva MD Work Phone: [facility] Comment on above: Essential hypertensi on (CMS/HCC) Start: 12-02-2024 End: 12-02-2024 Refill Sharonda Grijalva MD Work Phone: [facility] Comment on above: Fungal infection Start: 11-22-2024 End: 01-28-2025 Telephone encounter Sharonda Grijalva MD Work Phone: [facility] Start: 11-17-2024 End: 11-17-2024 ambulatory SHARONDA GRIJALVA Not Available Start: 11-17-2024 End: 11-17-2024 Bamboo flowsheet Sharonda Grijalva MD Work Phone: [facility] Start: 11-17-2024 End: 11-17-2024 Bamboo flowsheet Sharonda Grijalva MD Work Phone: [facility] Start: 11-07-2024 End: 11-07-2024 Refill Sharonda Grijalva MD Work Phone: [facility] Comment on above: Pure hypercholestero lemia (CMS/HCC); Essential hypertension (CMS/HCC) Start: 10-10-2024 End: 10-10-2024 Bamboo flowsheet Ventura Wilhelm Apling PROCESS TANK TENDER Work Phone: [facility] Start: 10-10-2024 End: 10-10-2024 Bamboo flowsheet Ventura Wilhelm Apling PROCESS TANK TENDER Work Phone: [facility] Start: 10-10-2024 End: 10-10-2024 ambulatory VENTURA Wilhelm APLING Not Available Start: 10-10-2024 End: 10-10-2024 Office outpatient visit 25 minutes eVntura Wilhelm Apling PROCESS TANK TENDER Work Phone: [facility] Comment on above: Left hip pain (Prima ry Dx); Trochanteric bursitis of left hip Start: 09-27-2024 End: 09-27-2024 Office outpatient visit 15 minutes Sharonda Grijalva MD Work Phone: [facility] Comment on above: COVID-19 (Primary Dx ); Acute cough; Moderate persistent asthma without complication (CMS/HCC) Start: 09-27-2024 End: 09-27-2024 ambulatory SHARONDA GRIJALVA Not Available Start: 09-27-2024 End: 09-27-2024 Bamboo flowsheet Sharonda Grijalva MD Work Phone: [facility] Start: 09-27-2024 End: 09-27-2024 Bamboo flowsheet Sharonda Grijalva MD Work Phone: [facility] Start: 09-12-2024 End: 09-12-2024 Refill Sharonda Grijalva MD Work Phone: [facility] Comment on above: Type 2 diabetes sandra itus without complication, without long- term current use of insulin ([facility]) (Primary Dx) Start: 09-07-2024 End: 09-08-2024 Telephone encounter David Norman PT [facility] Comment on above: Cx PT out (She had c alled and left message noting PT is not needed at this time and cx her remaining 2.) Start: 09-05-2024 End: 09-05-2024 Bamboo flowsheet Ventura Sood PROCESS TANK TENDER Work Phone: [facility] Start: 09-05-2024 End: 09-05-2024 Bamboo flowsheet Ventura Sood PROCESS TANK TENDER Work Phone: [facility] Start: 09-05-2024 End: 09-07-2024 Telephone encounter Sharonda Grijalva MD Work Phone: [facility] Start: 09-05-2024 End: 09-05-2024 Office outpatient visit 25 minutes Ventura Sood PROCESS TANK TENDER Work Phone: [facility] Comment on above: Right hip pain (Prim marlene Dx); Trochanteric bursitis of right hip Start: 09-05-2024 End: 09-05-2024 ambulatory VENTURA Wilhelm APLING Not Available Start: 08-30-2024 End: 08-31-2024 Telephone encounter Steve Pacheco FINAL TESTER [facility] Comment on above: Cx PT 08/31 (She call ed noting w/ having 2 jobs the time allowance tomorrow will not give her the availability to make PT. I reminded and she confirmed 09/07.) Start: 08-25-2024 End: 08-25-2024 ambulatory David Norman PT [facility] Comment on above: Lumbar pain (Primary Dx) Start: 08-25-2024 End: 08-25-2024 Bamboo flowsheet David Norman PT [facility] Start: 08-25-2024 End: 08-25-2024 Bamboo flowsheet David Norman PT [facility] Start: 08-16-2024 End: 08-16-2024 Telephone encounter Myles Reyna PT Work Phone: [facility] Comment on above: CX PT eval x3 (She h ad called and lm noting needing to cx PT Eval today.); fu (Called but had to lm notifying w/ this being x3 with rs PT Eval concluding in cancellations, we are not going to be able to rs until she can guarentee she can be present. Requested a call back luis.); Call back (She called back wanting to rs; I noted this will our last attempt due to 3 prior cx, and we scheduled 08/25 w/ Ramon Norman PT.) Start: 08-03-2024 End: 08-09-2024 Telephone encounter David Norman PT [facility] Comment on above: re: PT Eval (She apurva led and lm indicating unable to make PT Eval today; she said she will call back to rs.); FU (Tried to contact to seek rs if able; had to lm requesting a call back to check status. ); Call Back (She contacted and scheduled PT Eval 08/16 w/ Myles Reyna, PT.) Start: 07-20-2024 End: 07-20-2024 ambulatory SHARONDA Barlow RAYMUNDO Not Available Start: 07-08-2024 End: 07-08-2024 ambulatory SHARONDA GRIJALVA Not Available Start: 07-04-2024 End: 07-04-2024 Bamboo flowsadam Grijalva MD Work Phone: [facility] Start: 07-04-2024 End: 07-04-2024 Bamboo flowsadam Grijalva MD Work Phone: [facility] Start: 07-04-2024 End: 07-04-2024 ambulatory SHARONDA GRIJALVA Not Available Start: 07-04-2024 End: 07-04-2024 Office outpatient visit 15 minutes Sharonda Grijalva MD Work Phone: [facility] Comment on above: Right upper quadrant abdominal pain (Primary Dx); Type 2 diabetes mellitus without complication, without long-term current use of insulin (CMS/HCC); Lumbar pain Start: 04-07-2024 End: 04-07-[address] Not Available Start: 12-30-2023 End: 12-30-[address] Not Available Start: 11-28-[address] N P Work Phone: [facility] Comment on above: Pure hypercholestero lemia (CMS/HCC) Start: 03-20-2023 End: 03-21-[address] SHARONDA GRIJALVA Facility: Start: 10-22-2018 End: 10-23-2018 Patient encounter procedure DEFAULT PHYSICIAN Facility:[facility] Procedures Date Procedure Procedure Detail Performing Clinician Start: 10-10-2024 Arthrocentesis aspir &/inj major jt/bursa w/o us Ventura Sood PROCESS TANK TENDER Work Phone: Start: 09-27-2024 STATUS COVID-19/FLU Lori Grijalva MD Work Phone: Start: 09-05-2024 Arthrocentesis aspir &/inj major jt/bursa w/o us Ventura Sood PROCESS TANK TENDER Work Phone: Start: 07-04-2024 Hemoglobin glycosylated a1c Sharonda Grijalva MD Work Phone: Plan of Treatment Date Care Activity Detail Author Start: 01-07-2027 Screening for malignant neoplasm of cervix [facility] Start: 12-31-2026 Screening for malignant neoplasm of colon [facility] Start: 10-21-2026 Glaucoma screening Diabetes: R etinopathy Screening [facility] Start: 09-30-2025 Glaucoma screening Diabetes: R etinopathy Screening [facility] Start: 09-16-2025 Screening for malignant neoplasm of colon [facility] Start: 06-26-2025 Influenza vaccination Influenz a Vaccine (Season Ended) [facility] Start: 04-24-2025 Influenza vaccination Influenza Vacc ine (#1) [facility] Comment on above: Postponed from 06/26 (Patient Refused) Start: 02-15-2025 Hemoglobin A1c measurement Diabetes: Hemoglobin A1C [facility] Start: 11-17-2024 End: 11-17-2024 Patient encounter procedure 11/17/2024 3:00 PM EST Office Visit [facility] [address] [facility] [place] [phone] Sharonda Grijalva MD [address] [place] [address] Arrived [facility] Comment on above: Arrived Start: 10-06-2024 End: 10-06-2024 Patient encounter procedure [facility] Start: 10-05-2024 End: 10-05-2024 Patient encounter procedure 10/05/2024 1:45 PM EST Office Visit [facility] [address] [place] [address] Ventura Sood NP [address] [place] [address] [facility] Start: 10-03-2024 Hemoglobin A1c measurement Diabetes: Hemoglobin A1C [facility] Start: 09-30-2024 Urine screening for protein Diabetes: Urine Protein Screening [facility] Start: 09-27-2024 End: 09-27-2024 Patient encounter procedure 09/27/2024 2:20 PM EST Office Visit [facility] [address] [facility] [place] [phone] Sharonda Grijalva MD [address] [place] [address] Arrived [facility] Comment on above: Arrived Start: 09-26-2024 End: 09-26-2024 Patient encounter procedure 09/26/2024 1:30 PM EST Office Visit [facility] [address] [place] [address] Ventura Sood PROCESS TANK TENDER [address] [place] [address] [facility] Start: 09-14-2024 End: 09-14-2024 ambulatory 09/14/2024 2:00 PM EST Treatment [facility] [address] [place] [address] David Norman, PT [facility] Start: 09-07-2024 End: 09-07-2024 ambulatory 09/07/2024 2:00 PM EST Treatment [facility] [address] [place] [address] David Norman, PT [facility] Start: 09-05-2024 End: 09-05-2024 Patient encounter procedure 09/05/2024 1:30 PM EST Office Visit [facility] [address] [place] [address] Ventura Sood, PROCESS TANK TENDER [address] [place] [address] [facility] Start: 08-31-2024 End: 08-31-2024 ambulatory 08/31/2024 2:00 PM EST Treatment [facility] [address] [place] [address] Steve Pacheco PTA [facility] Start: 08-25-2024 End: 08-25-2024 ambulatory [facility] Comment on above: Lumbar pain Start: 08-16-2024 End: 08-16-2024 ambulatory 08/16/2024 2:30 PM EDT Evaluation [facility] [address] [place] [address] Myles Reyna, PT [address] [place] [address] [facility] Start: 07-08-2024 Hemoglobin A1c measurement Diabetes: Hemoglobin A1C [facility] Start: 07-04-2024 End: 07-04-2025 Collection capillary blood specimen Collection capillary blood specimen Procedures Routine Type 2 diabetes mellitus without complication, without long-term current use of insulin ([facility]/HCC) Expected: 07/04/2024 (Approximate), Expires: 07/04/2025 [facility] Work Phone: Comment on above: Expected: 07/04/2024 (Approximate), Expires: 07/04/2025 Start: 07-04-2024 End: 07-04-2025 MR Lumbar spine WO contrast MR lumbar spine wo contrast Imaging Routine Lumbar pain Expected: 07/04/2024, Expires: 07/04/2025 [facility] Comment on above: Expected: 07/04/2024 , Expires: 07/04/2025 Start: 07-04-2024 End: 07-04-2025 US Abdomen limited US LIVER Imaging Routine Right upper quadrant abdominal pain Expected: 07/04/2024, Expires: 07/04/2025 [facility] Comment on above: Expected: 07/04/2024 , Expires: 07/04/2025 Start: 06-26-2024 Influenza vaccination Influenza Vacc ine (#1) [facility] Start: 12-30-2023 End: 12-30-2023 Patient encounter procedure 12/30/2023 2:00 PM EST Office Visit [facility] [address] [place] [address], [employer] [address] [place] [address] [facility] Start: 09-15-2023 Hemoglobin A1c measurement Diabetes: Hemoglobin A1C [facility] Start: 09-07-2023 Glaucoma screening Diabetes: R etinopathy Screening [facility] Start: 1987 Screening for malignant neoplasm of cervix Pap Smear [facility] Start: 1966 Screening for malignant neoplasm of colon [facility] Immunizations Immunization Date Immunization Notes Care Provider Fa cility 08-10-2023 influenza, injectabl e, quadrivalent, preservative free Marcelle [facility] NP Work Phone: [facility] 08-10-2023 influenza virus vacc ine, unspecified formulation Sharonda Grijalva MD Work Phone: [facility] 08-01-2022 influenza, injectabl e, quadrivalent, preservative free [facility] [employer] Work Phone: [facility] 08-09-2021 influenza, injectabl e, quadrivalent, preservative free [facility] [employer]ER Work Phone: [facility] 08-16-2020 influenza, injectabl e, quadrivalent, preservative free [facility] [employer] Work Phone: [facility] Payers Date Payer Category Payer [facility] [id number] 2015 Unknown 1966 Unknown [id number] [id number]. 2.647 1966 Unknown [id number] [id number]. 2.593 1966 Unknown [id number] [id number]. 2.1259 1966 Unknown [id number] 2.16840.1.274333.3.579. 2.1259 1966 Unknown [id number] 2.16840.1.650890.3.579. 2.1259 1966 Unknown [id number] [id number]. 2.1259 1966 Unknown [id number] 2.16.840.1.363297.3.579. 2.1258 1966 Unknown [id number] 2.16.840.1.110188.3.579. 2.1258 1966 Unknown [id number] 2.16.840.1.360742.3.579. 2.1258 1966 Unknown [id number] 2.16.840.1.970119.3.579. 2.1258 1966 Unknown [id number] 2.16.840.1.678631.3.579. 2.1258 1966 Unknown [id number] 2.16.840.1.750351.3.579. 2.1258 1966 Unknown [id number] 2.16.840.1.967256.3.579. 2.1258 1966 Unknown [id number] [id number]. 2.9 1959 Unknown [id number] Social History Date Type Detail Facility Start: 03-19-2023 Tobacco smoking status [facility] Never sm oked tobacco [facility] Start: 03-19-2023 Tobacco use and exposure Smoke less tobacco non-user [facility] Start: 09-30-2023 End: 11-17-2024 Alcohol intake Lifetime non-drinker (finding) [facility] Start: 04-20-2023 End: 11-17-2024 History of Social function [facility] Start: 04-20-2023 End: 11-17-2024 Alcohol Use Disorder Identification Test - Consumption [AUDIT-C] [facility] How often to you hav e a drink containing alcohol? Never [facility] How many standard dr inks containing alcohol do you have on a typical day? Patient does not drink [facility] Start: 04-30-2023 Alcohol Comment caffeine: 3-4 cups per day [facility] Start: 1965 Sex Assigned At Not on file [facility] Medical Equipment Procedure Code Equipment Code Equipment Origin al Text Equipment Identifier Dates [id number] Start: 09-08-2023 USE AND DISCARD 1 TEST STRIP DAILY. for 90 [id number] USE AND DISCARD 1 LANCET DAILY. [id number] Start: 10-14-2024 Clinical Notes 11-30-2023 to 03-30-2025 Telephone Encounter - Sharonda Grijalva MD - 03/30/2025 12:03 PM EDTTelephone Encounter - Sharonda Grijalva MD - 03/30/2025 12:03 PM EDTTelephone Encounter - Sharonda Grijalva MD - 12/02/2024 4:21 PM EST Note Date & Type Note Facility 03-30-2025 Telephone encounter Note Approvals with refills [facility] 03-30-2025 Miscellaneous Notes Approvals with refills documented in this encounter [facility] 12-02-2024 Telephone encounter Note Approvals with refills [facility] 12-02-2024 Miscellaneous Notes Approvals with refills To: [facility] , ty documented in this encounter [facility] 12-02-2024 Telephone encounter Note To: [facility] , ty [facility] 11-22-2024 Telephone encounter Note Patient called and said she was in last week for her wellness, and discussed her ears, they feel plugged, she states she doesn't feel like you addressed it. I told her she was in for a wellness and may have to schedule another appt. She was not happy that she will have to pay a co-pay. [facility] 11-22-2024 Miscellaneous Notes Patient called and said she was in last week for her wellness, and discussed her ears, they feel plugged, she states she doesn't feel like you addressed it. I told her she was in for a wellness and may have to schedule another appt. She was not happy that she will have to pay a co-pay. documented in this encounter [facility] 11-07-2024 Telephone encounter Note Approvals with refills [facility] 11-07-2024 Miscellaneous Notes Approvals with refills documented in this encounter [facility] 10-10-2024 History of Present illness Narrative Associated Order(s): L Inj/Asp: L greater trochanteric bursa Post-Procedure Diagnose(s): Trochanteric bursitis of left hip Images from the original note were not included. Subjective Patient ID: Josee Sauceda is a 59 y.o. female. RT Hip 5 weeks s/p right greater trochanter depo medrol injection (09/05/24) with 90% improvement Last Kenalog injection (12/09/21) IT band with 100% improvement until about 6 months ago, notes she has been putting off coming in. Denies injury. Denies hardly any pain. Denies pain today. Pain can be lateral, nothing like it was. No pain meds. Denies topicals. Denies N/T, swelling. Denies popping/grinding. Denies giving out. Does not wake at HS. TX: XR [facility] 08/05/2018, corky white 800, 08/05/2018 right hip bursa injection, right hip bursa depo medrol injection 11/06/21, MDP 11/20/21, relafen, depo medrol injection 09/05/24 LT hip LT hip pain for a while but states RT hip was always worse. Last seen 06/29/2019 for the left hip, ordered an MRI of the hip at that time- unsure if she had it done. Wants injection. Last injection (05/18/19) Pain is lateral hip. Denies radiation. Taking motrin daily for other reasons. Denies topicals. Denies N/T, swelling. Denies popping/grinding. Denies giving out. Unable to lay on LT hip for very long. TX: depo medrol injection Lt hip bursa 01/23/16, 02/21/16, 05/27/16, 04/14/18, 04/29/18 Dr. Dean cortisone injection prior to 2015 injections, xrays Left hip and pelvis [facility] 01/04/2016, Aleve, Tylenol, IB, HEP, depo 05/18/19, HEP, oral steroids Objective Left Hip Exam Muscle Strength Adduction: 4/5 Hip Musculoskeletal Exam Gait Limp: right Inspection Left Erythema: none Ecchymosis: none Palpation Right Tenderness: none Left Tenderness: present Greater trochanteric region pain: moderate Range of Motion Right Active ROM: no pain. Left Active ROM: no pain. Strength Left Adduction: 4/5. Abduction: 4/5. L Inj/Asp: L greater trochanteric bursa on 10/10/2024 9:17 PM Indications: pain Details: 20 G needle, lateral approach Medications: 40 mg methylPREDNISolone acetate 40 MG/ML UTILIZING ASEPTIC TECHNIQUE PT GIVEN INJECTION IN LEFT HIP BURSA NEUROVASC INTACT S/P INJ, TOLERATED WELL Procedure, treatment alternatives, risks and benefits explained, specific risks discussed. Consent was given by the patient. Assessment/Plan Encounter Diagnoses: ICD-10-CM 1. Left hip pain M25.552 2. Trochanteric bursitis of left hip M70.62 Discussion of options, pt notes she would like an injection, side effects of bleeding and infection discussed, would like to proceed with the injection, using aspectic technique 40 mg of depo medrol was injected into the left hip greater trochaner bursa pt tolerated well, bandaid applied, may do activities as tolerated, f/u prn documented in this encounter [facility] 09-27-2024 History of Present illness Narrative Images from the original note were not included. Josee Sauceda is a 59 y.o. female presents with chief complaint of Sore Throat and Cough HPI: HPI Spouse w august burgos and on paxlovid SUBJECTIVE: MEDICATIONS: Current Outpatient Medications Medication Instructions albuterol HFA 90 mcg/act inhaler 2 puffs, Inhalation, Every 6 hours PRN aspirin 81 mg, Oral, Daily atorvastatin (Lipitor) 10 MG tablet TAKE 1/2 TABLET EVERY MORNING Fluticasone-Salmeterol (Advair Diskus) 250-50 MCG/ACT aerosol powder 1 Inhalation , Inhalation, 2 times daily IBU 800 MG tablet TAKE 1 TABLET 3 TIMES A DAY NEEDED WITH FOOD OR MILK Lancets (Cuedd Delica Plus [id number]) misc lisinopril 2.5 MG tablet TAKE 1 TABLET ONCE DAILY metFORMIN (Glucophage) 500 MG tablet TAKE 2 TABLETS 2 TIMES DAILY WITH MEALS metoprolol tartrate (Lopressor) 50 MG tablet TAKE 1 TABLET 2 TIMES DAILYWITH FOOD montelukast (Singulair) 10 MG tablet TAKE 1 TABLET ONCE DAILY Mounjaro 5 mg, Subcutaneous, Weekly naproxen sodium (ALEVE) 220 mg, 2 times daily PRN nystatin (Mycostatin) 188306 UNIT/GM powder APPLY POWDER TOPICALLY TO AFFECTED AREA TWICE DAILY FOR 5 DAYS DIRECTED omeprazole (PriLOSEC) [address] capsule TAKE 1 CAPSULE DAILY [employer] Ultra test strip USE AND DISCARD 1 TEST STRIP DAILY. for 90 ALLERGIES: No Known Allergies SURGICAL HISTORY: Past Surgical History: Procedure Laterality Date ARTHROPLASTY Right 04/17/2021 [facility] BREAST LUMPECTOMY Right 2002 SECTION, LOW TRANSVERSE x3 CHOLECYSTECTOMY 2006 KNEE SURGERY Right 01/07/2023 MENISCECTOMY Right 02/05/2022 knee medial meniscus FAMILY HISTORY: Family History Problem Relation Name Age of Onset No Known Problems Mother No Known Problems Father Diabetes Other Hypertension Other Glaucoma Other SOCIAL HISTORY: Social History Tobacco Use Smoking status: Never Smokeless tobacco: Never Vaping Use Vaping status: Never Used Substance Use Topics Alcohol use: Never Comment: caffeine: 3-4 cups per day Drug use: Never Depression: Not at risk (04/20/2023) PHQ-2 PHQ-2 Score: 0 REVIEW OF SYMPTOMS: Review of Systems OBJECTIVE: Visit Vitals BP 122/76 (BP Location: Left arm, Patient Position: Sitting, BP Cuff Size: Adult) Pulse 79 Resp 18 Ht 5' 3 Wt 160 lb SpO2 99% BMI 28.34 kg/m OB Status Postmenopausal Smoking Status Never BSA 1.8 m Physical Exam Constitutional: Appearance: Normal appearance. She is normal weight. HENT: Head: Normocephalic and atraumatic. Right Ear: Tympanic membrane and ear canal normal. Left Ear: Tympanic membrane and ear canal normal. Nose: Congestion and rhinorrhea present. Mouth/Throat: Mouth: Mucous membranes are moist. Pharynx: Oropharyngeal exudate present. Eyes: Pupils: Pupils are equal, round, and reactive to light. Cardiovascular: Rate and Rhythm: Normal rate and regular rhythm. Heart sounds: No murmur heard. Pulmonary: Effort: Pulmonary effort is normal. Breath sounds: Normal breath sounds. No wheezing or rhonchi. Musculoskeletal: General: No swelling. Cervical back: Normal range of motion and neck supple. Right lower leg: No edema. Left lower leg: No edema. Lymphadenopathy: Cervical: No cervical adenopathy. Skin: General: Skin is warm and dry. Findings: No rash. Neurological: Mental Status: She is oriented to person, place, and time. Sensory: No sensory deficit. Gait: Gait normal. Psychiatric: Mood and Affect: Mood normal. Thought Content: Thought content normal. Judgment: Judgment normal. ASSESSMENT AND PLAN: Assessment/Plan Problem List Items Addressed This Visit None Visit Diagnoses COVID-19 - Primary Relevant Medications Nirmatrelvir&Ritonavir 300/100 (Paxlovid, 300/100,) 20 x 150 MG & 10 x 100MG tablet therapy pack Acute cough Relevant Orders STATUS COVID-19/FLU (Completed) Moderate persistent asthma without complication (CMS/[facility]) Relevant Medications Fluticasone-Salmeterol (Advair Diskus) 250-50 MCG/ACT aerosol powder Assessment & Plan documented in this encounter [facility] 09-12-2024 Telephone encounter Note Approvals with refills [facility] 09-12-2024 Miscellaneous Notes Approvals with refills documented in this encounter [facility] 09-07-2024 Telephone encounter Note Lvm [facility] 09-07-2024 Miscellaneous Notes Lvm Please let pt know that unfortunately, I am not accepting new patients at this time. Patient came over from [facility] [place] referred her to come see us as primary care - her records are in the system she used to see sharonda grijalva and would like to switch to see callum jha. Please review chart to see if patient could be accepted or denied. documented in this encounter [facility] 09-05-2024 Telephone encounter Note Please let pt know that unfortunately, I am not accepting new patients at this time. [facility] Work Phone: 09-05-2024 Telephone encounter Note Patient came over from ortho here in [place] [facility] referred her to come see us as primary care - her records are in the system she used to see sharonda grijalva and would like to switch to see callum jha. Please review chart to see if patient could be accepted or denied. [facility] 09-05-2024 History of Present illness Narrative Associated Order(s): L Inj/Asp: R greater trochanteric bursa Post-Procedure Diagnose(s): Trochanteric bursitis of right hip Images from the original note were not included. Subjective Patient ID: Josee Sauceda is a 59 y.o. female. RT Hip *wants inj Last Kenalog injection (12/09/21) IT band with 100% improvement until about 6 months ago, notes she has been putting off coming in. Denies injury. Pain lateral hip, pain comes and goes, but is constant at night. Denies radiation. Denies N/T. Admits waking at night. Describes as a dull ache. Taking motrin 800 as needed for pain, mainly for her back. Denies ice, heat or creams. Denies cracking/popping. Denies giving out sensation. Denies locking/catching. Pain at rest 1/10. Pain at worst 7/10 at night. TX: XR [facility] 08/05/2018, voltaren, motrin 800, 08/05/2018 right hip bursa injection, right hip bursa depo medrol injection 11/06/21, MDP 11/20/21, relafen. Objective Right Hip Exam Muscle Strength Adduction: 4/5 Hip Musculoskeletal Exam Gait Limp: right Inspection Right Erythema: none Ecchymosis: none Palpation Right Tenderness: present Greater trochanteric region pain: moderate Range of Motion Right Active ROM: normal. Passive ROM: normal. Strength Right External rotation: 4/5. Adduction: 4/5. Abduction: 4/5. Special Tests Right Trendelenburg test: negative L Inj/Asp: R greater trochanteric bursa on 09/05/2024 2:16 PM Indications: pain Details: 20 G needle, lateral approach Medications: 40 mg methylPREDNISolone acetate 40 MG/ML Consent was given by the patient. Immediately prior to procedure a time out was called to verify the correct patient, procedure, equipment, support service tech and site/side marked as required. Patient was prepped and draped in the usual sterile fashion. Assessment/Plan Encounter Diagnoses: ICD-10-CM 1. Right hip pain M25.551 2. Trochanteric bursitis of right hip M70.61 Discussion of options, pt notes she would like an injection, side effects of bleeding and infection discussed, would like to proceed with the injection, using aspectic technique 40 mg of depo medrol was injected into the right knee, pt tolerated well, bandaid applied, may do activities as tolerated, f/u in 2 weeks. documented in this encounter [facility] 08-08-2024 Telephone encounter Note Received no reply w/ confirmation on the dates / times I had offered. [facility] 08-08-2024 Miscellaneous Notes Received no reply w/ confirmation on the dates / times I had offered. She had contacted via [employer] to request next week; I offered 10/15 @ 9 or 10/16 @ 1 or 3:30. Requested reply luis. documented in this encounter [facility] 08-03-2024 Telephone encounter Note She had contacted via [employer] to request next week; I offered 10/15 @ 9 or 10/16 @ 1 or 3:30. Requested reply luis. [facility] 07-04-2024 History of Present illness Narrative Josee Sauceda is a 59 y.o. female presents with chief complaint of Pain (Patient presents today for right side pain on and off for months. Patient takes motrin, but mainly for back pain. Patient does not recall any injury and does not notice anything make it better or worse.) HPI: HPI History of Present Illness The patient is a 59-year-old female who presents for evaluation of multiple medical concerns. She has been experiencing intermittent side pain for the past few months, which has recently become more persistent. She reports no leg numbness or weakness and has no issues with urination. However, she has noticed bowel irregularities since starting an unspecified injection. Bowel movements do not alleviate her pain, and food intake does not seem to affect it. She finds slight relief from Motrin, which she primarily uses for her back pain. Her back pain, which is widespread, has worsened over the past few months. She underwent an MRI in 2019 and received a couple of injections, but these did not provide relief. She was once informed that she might have a hernia. Additionally, she mentions a chronic cough, which remains unchanged and is attributed to weather changes. She has no history of smoking. SUBJECTIVE: MEDICATIONS: Current Outpatient Medications Medication Instructions albuterol HFA 90 mcg/act inhaler 2 puffs, Inhalation, Every 6 hours PRN aspirin 81 mg, Oral, Once atorvastatin (Lipitor) 10 MG tablet TAKE 1/2 TABLET EVERY MORNING Fluticasone-Salmeterol (Advair Diskus) 250-50 MCG/ACT aerosol powder 1 Inhalation , Inhalation, 2 times daily IBU 800 MG tablet TAKE 1 TABLET 3 TIMES A DAY NEEDED WITH FOOD OR MILK Lancets (Cuedd Delica Plus [id number]) misc lisinopril 2.5 MG tablet TAKE 1 TABLET ONCE DAILY metFORMIN (Glucophage) 500 MG tablet TAKE 2 TABLETS 2 TIMES DAILY WITH MEALS metoprolol tartrate (Lopressor) 50 MG tablet TAKE 1 TABLET 2 TIMES DAILYWITH FOOD montelukast (Singulair) 10 MG tablet TAKE 1 TABLET ONCE DAILY Mounjaro 5 mg, Subcutaneous, Weekly naproxen sodium (ALEVE) 220 mg, Oral, 2 times daily PRN nystatin (Mycostatin) [id number] UNIT/GM powder APPLY POWDER TOPICALLY TO AFFECTED AREA TWICE DAILY FOR 5 DAYS DIRECTED omeprazole (PriLOSEC) [address] capsule TAKE 1 CAPSULE DAILY Cuedd Ultra test strip USE AND DISCARD 1 TEST STRIP DAILY. for 90 ALLERGIES: No Known Allergies SURGICAL HISTORY: Past Surgical History: Procedure Laterality Date ARTHROPLASTY Right 04/17/20[place] [facility] [place]UMPECTOM[place] Right 2002 SECTION, LOW TRANSVERSE x3 CHOLECYSTECTOMY 2006 KNEE SURGERY Right 01/07/2023 MENISCECTOMY Right 02/05/2022 knee medial meniscus FAMILY HISTORY: Family History Problem Relation Name Age of Onset No Known Problems Mother No Known Problems Father Diabetes Other Hypertension Other Glaucoma Other SOCIAL HISTORY: Social History Tobacco Use Smoking status: Never Smokeless tobacco: Never Vaping Use Vaping status: Never Used Substance Use Topics Alcohol use: Never Comment: caffeine: 3-4 cups per day Drug use: Never Depression: Not at risk (04/20/2023) PHQ-2 PHQ-2 Score: 0 REVIEW OF SYMPTOMS: Review of Systems OBJECTIVE: Visit Vitals BP 122/76 (BP Location: Left arm, Patient Position: Sitting, BP Cuff Size: Adult) Pulse 65 Resp 18 Ht 5' 3 Wt 170 lb 6.4 oz SpO2 98% BMI 30.19 kg/m OB Status Postmenopausal Smoking Status Never BSA 1.85 m Physical Exam Constitutional: Appearance: Normal appearance. She is normal weight. Musculoskeletal: General: No tenderness. Cervical back: Normal range of motion and neck supple. Right lower leg: No edema. Left lower leg: No edema. Comments: 5/5 lower leg strength Skin: General: Skin is warm and dry. Neurological: General: No focal deficit present. Mental Status: She is alert and oriented to person, place, and time. Mental status is at baseline. Psychiatric: Mood and Affect: Mood normal. Behavior: Behavior normal. Thought Content: Thought content normal. Judgment: Judgment normal. ASSESSMENT AND PLAN: Assessment/Plan Problem List Items Addressed This Visit Type 2 diabetes mellitus without complication, without long-term current use of insulin ([facility]) Relevant Orders POCT glycosylated hemoglobin (Hb A1C) docked device (Completed) Collection capillary blood specimen Other Visit Diagnoses Right upper quadrant abdominal pain - Primary Relevant Orders XR chest 2 views (Completed) XR ABDOMEN 2 VIEW (Completed) US LIVER Lumbar pain Relevant Orders MR lumbar spine wo contrast Assessment & Plan 1. Abdominal pain. The patient's abdominal discomfort necessitates further investigation to identify the underlying cause. An x-ray of the abdomen and lungs will be conducted, along with an ultrasound of the liver. She is advised to take Tylenol for pain management. 2. Back pain. The patient reports worsening back pain over the last few months. An MRI of her back has been ordered, but she was informed that insurance coverage may require 12 physical therapy sessions prior to the MRI. She has been taking Motrin for pain relief, which helps occasionally. Follow-up A follow-up appointment is scheduled in 2 weeks to review the results and determine the next steps. documented in this encounter [facility] 11-30-2023 Telephone encounter Note Approvals with refills [facility] 11-30-2023 Miscellaneous Notes Approvals with refills documented in this encounter [facility] Evaluation note Diagnosis Pure hypercholesterolemia (CMS/HCC) Pure hypercholesterolemia documented in this encounter [facility]* Diagnosis Lumbar pain- Primary Lumbago documented in this encounter [facility]* Diagnosis Right hip pain- Primary Pain in joint, pelvic region and thigh Trochanteric bursitis of right hip documented in this encounter [facility]* Diagnosis Type 2 diabetes mellitus without complication, without long-term current use of insulin (CMS/HCC)- Primary Left hip pain- Primary Pain in joint, pelvic region and thigh Right hip pain Pain in joint, pelvic region and thigh Trochanteric bursitis of right hip documented in this encounter [facility]* Diagnosis COVID-19- Primary Acute cough Moderate persistent asthma without complication (CMS/HCC) documented in this encounter [facility]* Diagnosis Left hip pain- Primary Pain in joint, pelvic region and thigh Trochanteric bursitis of left hip documented in this encounter [facility]* Diagnosis Right upper quadrant abdominal pain- Primary Type 2 diabetes mellitus without complication, without long-term current use of insulin (CMS/HCC) Lumbar pain Lumbago Right upper quadrant abdominal pain Right upper quadrant abdominal pain documented in this encounter [facility]* Diagnosis Pure hypercholesterolemia (CMS/HCC) Pure hypercholesterolemia Essential hypertension (CMS/HCC) Unspecified essential hypertension documented in this encounter [facility]* Diagnosis Fungal infection Other and unspecified mycoses documented in this encounter [facility]* Diagnosis Essential hypertension (CMS/HCC) Unspecified essential hypertension documented in this encounter [facility] HealthcareReason for visit Narrative* Rehabilitation - Outpatient (Routine) - Authorized Specialty Diagnoses / Procedures Referred By Contac t Referred To Contact Physical Therapy Diagnoses Lumbar pain Procedures CT OFFICE/OUTPATIENT NEW HIGH MDM 60 MINUTES Sharonda Grijalva MD [address] [place] [address] Phone: tel: fax: David Norman, LORI Referral ID Status Reason Start Date Expiration Date Visits Requested Visits Authorized [id number] Authorized Specialty Services Required 07/21/2024 01/17/2025 60 60 [facility] Summary Purpose Family History No Family History Records FoundNo Family History Records FoundNo Family History Records FoundNo Family History Records Found Advance Directives No Advanced Directives Records FoundNo Advanced Directives Records FoundNo Advanced Directives Records FoundNo Advanced Directives Records Found Reason for Referral Specialty Diagnoses / Procedures Referred By Contac t Referred To Contact Radiology Diagnoses Lumbar pain Procedures MR lumbar spine wo contrast Sharonda Grijalva MD [address] [place] [address] Referral ID Status Reason Start Date Expiration Date V isits Requested Visits Authorized [id number] Pending Review 07/04/2024 12/31/2024 1 1 Additional Source Comments INFORMATION SOURCE (unrecogn ized section and content) DATE CREATED AUTHOR 10/23/2018 [facility] DATE CREATED AUTHOR AUTHOR'S ORGANIZ ATION 11/12/2022 [facility] DATE CREATED AUTHOR AUTHOR'S ORGANIZ ATION 04/03/2023 [facility] DATE CREATED AUTHOR AUTHOR'S ORGANIZ ATION 11/19/2024 [facility] dical Specialists EPIC Reason for Visit (unrecogniz ed section and content) Reason Comments Med Refill Reason Onset Date Comments re: PT Eval 08/03/2024 She called and l m indicating unable to make PT Eval today; she said she will call back to rs. FU 08/04/2024 Tried to contact to seek rs if able; had to lm requesting a call back to check status. Call Back 08/08/2024 She contacted an d scheduled PT Eval 08/16 w/ Myles Reyna PT. Reason Onset Date Comments CX PT eval x3 08/16/2024 She had called a nd lm noting needing to cx PT Eval today. fu 08/16/2024 Called but had t o lm notifying w/ this being x3 with rs PT Eval concluding in cancellations, we are not going to be able to rs until she can guarentee she can be present. Requested a call back luis. Call back 08/16/2024 She called back wanting to rs; I noted this will our last attempt due to 3 prior cx, and we scheduled 08/25 w/ Ramon Norman, PT. Reason Onset Date Comments Cx PT 08/3108/30/2024 She called [employer] w/ having 2 jobs the time allowance tomorrow will not give her the availability to make PT. I reminded and she confirmed 09/07. Reason Comments Pain Reason Onset Date Comments Cx PT out 09/07/2024 She had called a nd left message noting PT is not needed at this time and cx her remaining 2. Reason Comments Sore Throat Cough Reason Comments Follow-up Pain Reason Comments Pain Patient presents tod ay for right side pain on and off for months. Patient takes motrin, but mainly for back pain. Patient does not recall any injury and does not notice anything make it better or worse. Care Teams (unrecognized sec tion and content) Security Systems Administrator Relationship Specialty Start Date End Date Marcelle [address] NP [address] [place] [address] PCP - [place] [employer] 11/26/21 Sharonda Grijalva MD [address] [place] [address] PCP - General Family Medicine 03/19/23 Security Systems Administrator Relationship Specialty Start Date End Date Marcelle [address] NP [address] [place] [address] PCP - [place] [employer] 11/26/21 Sharonda Grijalva MD [address] [place] [address] PCP - General Family Medicine 03/19/23 Security Systems Administrator Relationship Specialty Start Date End Date [address]elle [address] NP [address] [place] [address] PCP - [place] [employer] 11/26/21 Sharonda Grijalva MD [address] [facility] [place] [address] PCP - General Family Medicine 03/19/23 Security Systems Administrator Relationship Specialty Start Date End Date Marcelle [address] NP [address] [facility] [place] [address] PCP - [place] [employer] 11/26/21 Sharonda Grijalva MD [address] [facility] [place] [address] PCP - General Family Medicine 03/19/23 Security Systems Administrator Relationship Specialty Start Date End Date Marcelle [address] NP [address] [facility] [place] [address] PCP - [place] [employer] 11/26/21 Sharonda Grijalva MD [address] [facility] [place] [address] PCP - General Family Medicine 03/19/23 Security Systems Administrator Relationship Specialty Start Date End Date Marcelle [address] NP [address] [facility] [place] [address] PCP - [place] [employer] 11/26/21 Sharonda Grijalva MD [address] [facility] [place] [address] PCP - General Family Medicine 03/19/23 Security Systems Administrator Relationship Specialty Start Date End Date Marcelle [address] NP [address] [facility] [place] [address] PCP - [place] [employer] 11/26/21 Sharonda Grijalva MD [address] [place] [address] PCP - General Family Medicine 03/19/23 Security Systems Administrator Relationship Specialty Start Date End Date Marcelle St NP [address] [place] [address] PCP - [place] [employer] 11/26/21 Sharonda Grijalva MD [address] [place] [address] PCP - General Family Medicine 03/19/23 Security Systems Administrator Relationship Specialty Start Date End Date Marcelle St NP [address] [place] [address] PCP - [place] [employer] 11/26/21 Sharonda Grijalva MD [address] [place] [address] PCP - General Family Medicine 03/19/23 Security Systems Administrator Relationship Specialty Start Date End Date Marcelle St NP PCP - [place] [employer] 11/26/21 Sharonda Grijalva MD [address] [place] [address] PCP - General Family Medicine 03/19/23 Security Systems Administrator Relationship Specialty Start Date End Date Marcelle St NP PCP - [place] [employer] 11/26/21 Sharonda Grijalva MD [address] [place] [address] PCP - General Family Medicine 03/19/23 Security Systems Administrator Relationship Specialty Start Date End Date Marcelle St NP [address] [place] [address] PCP - [place] [employer] 11/26/21 Sharonda Grijalva MD [address] [place] [address] PCP - General Family Medicine 03/19/23 Security Systems Administrator Relationship Specialty Start Date End Date Marcelle [address] NP [address] [place] [address] PCP - [place] [employer] 11/26/21 Sharonda Grijalva MD [address] [place] [address] PCP - General Family Medicine 03/19/23 Security Systems Administrator Relationship Specialty Start Date End Date Marcelle St NP PCP - [place] [employer] 11/26/21 Sharonda Grijalva MD [address] [place] [address] PCP - General Family Medicine 03/19/23 Security Systems Administrator Relationship Specialty Start Date End Date Marcelle St NP PCP - [place] [employer] 11/26/21 Sharonda Grijalva MD [address] [place] [address] PCP - General Family Medicine 03/19/23 Security Systems Administrator Relationship Specialty Start Date End Date Marcelle tS NP PCP - [place] [employer] 11/26/21 Sharonda Grijalva MD [address] [place] [address] PCP - General Family Medicine 03/19/23 Security Systems Administrator Relationship Specialty Start Date End Date Marcelle St NP PCP - [facility] 11/26/21 Sharonda Grijalva MD [address], [place] [id number] PCP - General Family Medicine 03/19/23 FOR RECORDS PERTAINING TO PATIENTS WHO ARE OR HAVE BEEN ENROLLED IN A CHEMICAL DEPENDENCY/SUBSTANCEABUSE PROGRAM, SOME INFORMATION MAY BE OMITTED. This clinical summary was aggregated from multiple sources. Caution should be exercised in using it in the provision of clinical care. This summary normalizes information from multiple sources, and as a consequence, information in this document may materially change the coding, format and clinical context of patient data. In addition, data may be omitted in some cases. CLINICAL DECISIONS SHOULD BE BASED ON THE PRIMARY CLINICAL RECORDS. [facility] [employer] [facility]. provides no warranty or guarantee of the accuracy or completeness of information in this document.
== END 2025-04-03 07:23 | disposition home or self-care (01) ==
LOC: MAMMO 07:22
PROVIDERS: PCP Family Medicine; Visit Provider Family Medicine
DX: Z12.31 Encounter for screening mammogram for malignant neoplasm of breast (principal); Z85.3 Personal history of malignant neoplasm of breast
CPT/HCPCS: 77063; 77067